=== PATIENT | female | born 1965 | race Caucasian/White ===

== ENCOUNTER 2017-02-06 12:49 | Observation (INO) ==
[2017-02-06] MEDS ORDERED: Naloxone 0.4 MG/ML INJ IVP PRN (15:21)
[2017-02-06] MEDS ORDERED: (Rizatriptan Benzoate [Maxalt] 10 MG) PO PRN (15:26)
[2017-02-06] MEDS: *HR* Morphine 2 MG/ML SYRINGE IVP PRN ×2 (15:52→21:05)
--- NOTE | 2017-02-06 16:24 | Internal Med History&Physical ---
<Philipp Wilson - Last Filed: 02/06/17 16:13> Date of Encounter: 02/06/17 Time of Encounter: 16:13 Assessment and Plan (1) Chest pain Current visit: Yes Status: Acute Giving the patient's clinical presentation she does not appear to be having an NY. However due to her prior history of [place], HTN, DMII, HLD and the setting of chest pain and I will continue to rule out ACS. Patient is resting comfortably in bed at this time and is only requiring intermittent oxygen for respiratory support. She does continue to endorse chest discomfort and tightness with pressure. Stress test in the morning Nothing by mouth after midnight Serial troponins CBC and BMP in the morning Qualifiers: Chest pain type: unspecified Qualified Code(s): R07.9 - Chest pain, unspecified (2) Dyspnea on exertion Current visit: Yes Status: Acute Resting comfortably this time on room air. The patient is intermittently wearing nasal cannula and she feels like she needs it. Does not wear O2 at home. She does have a history of DVT with platelet this time she is at risk for PE due to clinical presentation. Score calculates at 1.5 placing her low risk for PE. Add duo nebs every 4 hours when necessary for dyspnea and wheezing Respiratory support as needed Venous Doppler bilateral lower extremities tomorrow (3) Hypertension Current visit: Yes Status: Acute History of hypertension. The patient is on a beta shantelle at home. She reports that she is anxious and normally her blood pressure tends to increase when she is feeling this way. Continue to monitor throughout hospital course and add an additional oral antihypertensive as needed. Follow up with primary care provider if she remains hypertensive. Qualifiers: Hypertension type: essential hypertension Qualified Code(s): I10 - Essential (primary) hypertension (4) Hyperlipidemia Current visit: Yes Status: Chronic She is unsure when she had her last lipid panel. She is on atorvastatin at home , continue home dose. Follow-up with PCP Qualifiers: Hyperlipidemia type: unspecified Qualified Code(s): E78.5 - Hyperlipidemia , unspecified (5) Diabetes Current visit: Yes Status: Acute Long-standing history of type 2 diabetes. The patient is on both basal and short acting insulin at home as well as oral hypoglycemic agents. While in the hospital and discontinue her oral hypoglycemics and short acting insulin. 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 She is on anticholinergic and VASU therapy. We will hold these while in the hospital and put her on DuoNeb's every 4 when necessary Qualifiers: COPD type: emphysema Emphysema type: unspecified Qualified Code(s): J43.9 - Emphysema, unspecified Internal Medicine - H&P: HPI Chief complaint: CHEST PAIN Admitted From: Home Plans for Post Hospital Care: Home History of present illness: Ms. Kaur is a 51 year old female with a PMH of arthritis, COPD, CVA, DVTs, DMII, GERD, previous GI bleed, HLD, HTN, TIA, anxiety/Bipolar depression and [place] who presents to [facility] with chest pressure beginning approximately 0400 this morning. She reports that the chest pressure is substernal and radiates to the mid back and right arm. Chest pain is worse with activity and accompanied with dyspnea, she admits to nausea and dizziness and headache activity as well. She does a past history of NY, & CVA. Currently she is stating that it feels like something sitting on her chest and pushing through to the bed. However, she is sitting up in bed and does not appear to be in distress. Denies any fever, chills, cough, lower extremity swelling. Admits to palpitations, tachycardia, nausea. She is intermittent removing her nasal cannula while she is eating and denies any respiratory discomfort. Additionally, the patient is concerned about some left lower extremity pain she describes as constant and sharp. Patient states that she believes she is having a "jeff horse" (cramps). She has not had any recent echocardiogram or left heart cath. Past Med Surg Social Fam HX - Past Medical History Medical history: arthritis, COPD, CVA, DVT, diabetes, GERD, GI bleed, hyperlipidemia, hypertension, myocardial infarction, TIA, other Psychiatric history: anxiety, bipolar, depression, PTSD, prior suicide attempt, other - Past Surgical History Surgical History: appendectomy, orthopedic, other, other - Social History Smoking Status: Former smoker Smokeless Tobacco Status: No Alcohol use: rarely Drug use: marijuana - Family History Mother Adopted: No Family Member Ethnicity: Non- Living Status: Still Living Hx Family Cardiac Disorders: Yes (HTN) Hx Family Respiratory Disorders: No Hx Family Cancer: No Hx Family GI Disorders: Yes (choli) Father Race: Family Member Ethnicity: Non- Living Status: Cause of : Leukemia Internal Medicine - H&P: Meds Atenolol [Tenormin] 25 mg PO DAILY 12/31/14 [History] Gabapentin [Neurontin] 900 mg PO TID 12/31/14 [History] Insulin LISPRO [HumaLOG] 0 units SQ TIDAC 12/31/14 [History] Lansoprazole [Prevacid] 30 mg PO QAM 12/31/14 [History] Sucralfate [Carafate] 1 gm PO TID 12/31/14 [History] metFORMIN [Glucophage] 1,000 mg PO BID 12/31/14 [History] Cholecalciferol (Vitamin D3) [Vitamin D3] 5,000 unit PO DAILY 09/03/15 [History] Dicyclomine [Bentyl] 10 mg PO TID PRN 09/03/15 [History] Docusate Sodium [Colace] 100 mg PO DAILY 09/03/15 [History] Fenofibrate [Lofibra] 160 mg PO DAILY 09/03/15 [History] [place]-3S/Dha/Epa/Fish Oil [Fish Oil 1,200 mg Softgel] 1 each PO BID 09/03/15 [ History] Albuterol Sulfate [Ventolin Hfa] 2 puff IH QID PRN 09/19/15 [History] Budesonide/Formoterol 160/4.5 [Symbicort 160/4.5] 2 puff IH BIDR 09/19/15 [ History] Cyclobenzaprine HCl 5 mg PO TID 09/19/15 [History] diazePAM [Valium] 5 mg PO QID PRN 10/14/15 [History] Insulin DETEMIR [Levemir Flextouch] 18 unit SQ HS 10/30/15 [History] Atorvastatin Calcium [Lipitor] 40 mg PO DAILY 01/26/16 [History] Aspirin 81 mg PO DAILY 01/29/16 [History] Ipratropium Neb [Atrovent Neb] 0.5 mg IH TID 01/29/16 [History] Acetaminophen [Tylenol] 500 mg PO Q6HR PRN 01/13/17 [History] Amitriptyline [Elavil] 25 mg PO HS 02/06/17 [History] Ibuprofen [Motrin] 800 mg PO Q6HR PRN 02/06/17 [History] Rizatriptan Benzoate [Maxalt] 10 mg PO TID PRN 02/06/17 [History] 3 Allergy/AdvReac Type Severity Reaction Status Date / Time Sulfa (Sulfonamide Allergy Hives Verified 02/08/16 02:16 Antibiotics) plastic tape Allergy Hives Uncoded 06/22/15 07:17 All Systems PM: A 10-system review of systems was performed and is negative for pertinent findings except as documented above in the HPI. - Constitutional Constitutional: no chills, no fever(s), no night sweats - EENT Eyes: no change in vision, no discharge, no pain, no photophobia Ears: no ear discharge, no ear pain, no tinnitus Nose, mouth and throat: no dysphagia, no nasal discharge, no neck pain, no sore throat - Cardiovascular Cardiovascular ROS IM: as per HPI, chest pain, dyspnea on exertion, lightheadedness, palpitations, no diaphoresis, no dyspnea, no syncope - Respiratory Respiratory: no cough, no dyspnea, no wheezing, no excessive phlegm production - Gastrointestinal Gastrointestinal: no abdominal pain, no diarrhea, no hematemesis, no hematochezia, no melena, no nausea, no vomiting - Genitourinary Genitourinary: no change in urinary stream, no dysuria, no flank pain, no hematuria - Musculoskeletal Musculoskeletal ROS IM: as per HPI, muscle cramps, no joint swelling, no numbness, no tingling - Integumentary Integumentary IM: no rash, no unusual bruising - Neurological Neurological ROS: no confusion, no convulsions, no focal weakness, no numbness, no tingling, no tremor(s) - Psychiatric Psychiatric: anxiety - Hematologic/Lymphatic Hematologic/Lymphatic: no easy bruising - Constitutional Vitals: Temp Pulse Resp BP Pulse Ox 98.7 F 69 18 166/78 95 02/06/17 15:11 02/06/17 15:11 02/06/17 15:11 02/06/17 15:11 02/06/17 15:11 General appearance: Present: mild distress, A&O X 3, morbidly obese, answers questions appropriately - Head Head exam: Present: atraumatic, normocephalic - Eye Eye exam: Present: PERRL, conjuntiva pink, sclera anicteric Pupils: Present: PERRL - Neck Neck exam general surgery: Present: supple, trachea midline. Absent: lymphadenopathy - Respiratory Respiratory exam: Present: decreased breath sounds, CTAB. Absent: accessory muscle use, chest wall tenderness, rales, respiratory distress, rhonchi, wheezes , tachypnea - Cardiovascular Cardiovascular exam: Present: RRR, +S1, +S2. Absent: diastolic murmur, gallop, irregular rhythm, JVD, rubs, systolic murmur, tachycardia - GI/Abdominal GI/Abdominal exam: Present: normal bowel sounds, soft, no peritoneal signs. Absent: distended, tenderness - Extremities Exam Extremities exam: Present: calf tenderness, full ROM, normal capillary refill, normal inspection, radial pulses palpable and symmetrical. Absent: mottling, pedal edema, warm - Neurological Exam Neurological exam: Present: alert, CN II-XII intact, oriented X3, strengths equal and symetr throughout - Psychiatric Psychiatric exam: Present: anxious - Skin Skin exam: Present: dry, intact Internal Med - H&P Results - Labs Labs: Labs reviewed from [facility] ED - EKG Data -: EKG Interpreted by Myself EKG shows normal: sinus rhythm Rate: normal - EKG Data Prior EKG available for review: no Interpretation IM: normal EKG - Diagnostic Studies Chest x-ray Status: image reviewed by me Additional comments: No acute cardiopulmonary process <Tricia Rivers - Last Filed: 02/06/17 18:10> Date of Encounter: 02/06/17 Internal Medicine - H&P: HPI History of present illness: Ms. Kaur is a 51 year old female All Systems PM: A 10-system review of systems was performed and is negative for pertinent findings except as documented above in the HPI. - Constitutional Vitals: Temp Pulse Resp BP Pulse Ox 98.7 F 69 18 166/78 95 02/06/17 15:11 02/06/17 15:11 02/06/17 15:11 02/06/17 15:11 02/06/17 15:11 Internal Med - H&P Results - Labs Labs: Cardiac Enzymes 02/06/17 Range/Units 16:09 Troponin I 0.01 (0-0.03) ng/mL - Attending Attestation I have personally performed a face to face evaluation on this patient. I have reviewed and agree with the care plan. History and Exam by me shows: 51 yo female with strong vascular hx of [place] , angioplasty 2002, 2 x CVA / multiple TIAs who presents with chest pain evaluation. chest pain started when she work up at 4 a.m, pain radiating to the back of the chest, and all over, BP measured 187/115, Reports hx of DVT off AC due to GIB previously At [facility] ED, D-dimer elevated EKG reviewed with rate 84, NSR A/P Chest pain - given significant hx, will trend trop, will plan for stress testing - check amylase/lipase Elevated Dimer in setting of obesity - significant unknown at current - low suspicion for PE given normal HR, no oxygen requirement, no pleuritic component - check b/l LE doppler as patient report concern of LLE cramps on exam - further management pending inpatient course
[2017-02-06 16:37] LABS: Amylase 54 Units/L (25-125); Lipase 77 Units/L (8-78)
[2017-02-06] MEDS ORDERED: Ipratropium/Albuterol Neb 3 ML IH PRN (16:41)
[2017-02-06] MEDS ORDERED: D5% in Water 1,000 ML IVC PRN (16:42)
[2017-02-06] MEDS ORDERED: *HR* Dextrose 50 % in Water (Syg) 50 ML SYRINGE IVP PRN (16:42)
[2017-02-06] MEDS ORDERED: Dextrose Gel 15 GM PO PRN ×2 (16:42)
[2017-02-06] MEDS: Insulin LISPRO 300 UNITS/3 ML VIAL SQ SCH (16:54)
[2017-02-06] MEDS: Budesonide/Formoterol 160/4.5 MDI IH SCH (19:49)
[2017-02-06] MEDS ORDERED: Sucralfate 1 GM TABLET PO SCH (21:00)
[2017-02-06] MEDS: Gabapentin 300 MG CAPSULE PO SCH (21:04)
[2017-02-06] MEDS: diazePAM 5 MG TABLET PO PRN (21:05)
[2017-02-06] MEDS: Insulin DETEMIR 100 UNIT/ML X5UNITS SQ SCH (21:06)
[2017-02-07] MEDS: *HR* Morphine 2 MG/ML SYRINGE IVP PRN ×5 (01:17→21:15)
[2017-02-07 04:12] LABS: Basophils % 0.4 %; Eosinophils # 0.2 K/mcL (0.0-0.6); Eosinophils % 2.7 %; Hematocrit 41.5 % (35.3-44.9); Hemoglobin 12.8 g/dL (11.5-15.4); Immature Granulocytes % 0.4 % (0-4); Lymphocytes # 2.5 K/mcL (0.6-4.6); Lymphocytes % 32.9 %; Mean Corpuscular HGB Conc 30.8 g/dL (31.6-35.5); Mean Corpuscular Hemoglobin 25.6 pg (28.0-33.3); Mean Platelet Volume 10.4 fL (9.4-12.4); Monocytes # 0.6 K/mcL (0.0-1.3); Monocytes % 8.6 %; Neutrophils # 4.1 K/mcL (1.6-8.9); Platelet Count 178 K/mcL (140-400); Red Cell Distribution Width 16.4 % (11.5-14.5)
[2017-02-07 04:30] LABS: BUN/Creatinine Ratio 17 (6-26); Blood Urea Nitrogen 11 mg/dL (7-20); Calcium 9.5 mg/dL (8.6-10.8); Carbon Dioxide 23 mEq/L (19-29); Chloride 106 mEq/L (98-109); Glucose 126 mg/dL (70-99); Osmolality,Calculated 287 (280-300); Potassium 3.6 mEq/L (3.5-4.5); Sodium 138 mEq/L (136-145); eGFR For African Americans > 60 (> 60); eGFR For Non-African Americans > 60 (> 60)
[2017-02-07] MEDS: *HR* Enoxaparin 40 MG/0.4 ML SYRINGE SQ SCH (05:12)
[2017-02-07] MEDS ORDERED: Regadenoson 0.4 MG/5 ML SYRINGE IVP ONE (06:43)
[2017-02-07] MEDS: Insulin LISPRO 300 UNITS/3 ML VIAL SQ SCH ×3 (07:36→17:05)
[2017-02-07] MEDS ORDERED: *HR* Morphine 2 MG/ML SYRINGE IVP PRN (08:01)
[2017-02-07] MEDS ORDERED: Ondansetron 4 MG/2 ML VIAL ONE (08:06)
[2017-02-07] MEDS: Budesonide/Formoterol 160/4.5 MDI IH SCH ×2 (08:11→20:24)
[2017-02-07] MEDS: Ondansetron 4 MG/2 ML VIAL IVP PRN ×2 (08:16→23:37)
[2017-02-07] MEDS: Fenofibrate 54 MG TABLET PO SCH (08:17)
[2017-02-07] MEDS: Aspirin 81 MG TAB.CHEW PO SCH (08:17)
[2017-02-07] MEDS: Gabapentin 300 MG CAPSULE PO SCH ×3 (08:17→21:05)
[2017-02-07] MEDS: Cholecalciferol (D-3) 1,000 UNIT TABLET PO SCH (08:17)
[2017-02-07] MEDS: Sucralfate 1 GM TABLET PO SCH ×3 (08:18→16:49)
[2017-02-07] MEDS: Acetaminophen 325 MG TABLET PO PRN (08:21)
[2017-02-07] MEDS ORDERED: Pantoprazole 40 MG VIAL IVP SCH (09:00)
[2017-02-07] MEDS: diazePAM 5 MG TABLET PO PRN (11:45)
--- NOTE | 2017-02-07 12:32 | Internal Med Progress Note ---
Date of Encounter: 02/07/17 Time of Encounter: 12:29 - Assessment and plan (1) Chest pain Current Visit: Yes Status: Acute Assessment and plan: Second part of stress test scheduled for tomorrow Order STAT a CT angiogram of the chest to evaluate aortic dissection due to the unusual nature of the patient's pain and hypertension Continue blood pressure control The patient was on aspirin, Lipitor and atenolol Use morphine as needed Qualifiers: Chest pain type: other chest pain Qualified Code(s): R07.89 - Other chest pain; R07.8 - Other chest pain (2) COPD (chronic obstructive pulmonary disease) Current Visit: Yes Status: Suspected Assessment and plan: Stable, no exacerbation Qualifiers: COPD type: emphysema Emphysema type: unspecified Qualified Code(s): J43.9 - Emphysema, unspecified (3) Morbid obesity Current Visit: No Status: Acute (4) Hypertension Current Visit: Yes Status: Acute Assessment and plan: Continue atenolol Add lisinopril Add hydralazine IV as needed Qualifiers: Hypertension type: essential hypertension Qualified Code(s): I10 - Essential (primary) hypertension (5) Diabetes Current Visit: Yes Status: Acute Assessment and plan: Continue insulin sliding scale Qualifiers: Diabetes mellitus type: type 2 Diabetes mellitus complication status: without complication Diabetes mellitus detention insulin use: with detention use Qualified Code(s): E11.9 - Type 2 diabetes mellitus without complications ; Z79.4 - terminal make up operator (current) use of insulin; Z79.4 - terminal make up operator (current) use of insulin; Z79.4 - [facility] (current) use of insulin; Z79.4 - terminal make up operator ( current) use of insulin - Subjective Interval history: Complaining of pain over her chest that radiates to her abdomen and hips, pleuritic in nature but sometimes stabbing-like. Feels short of breath, pain is constant 9 out of 10 intensity, feels nauseous, has abdominal pain, no dysuria or diarrhea - Constitutional Vitals: Temp Pulse Resp BP Pulse Ox 98.2 F 87 16 158/95 95 02/07/17 11:21 02/07/17 11:21 02/07/17 11:21 02/07/17 11:21 02/07/17 11:21 General appearance: Present: mild distress, A&O X 3, morbidly obese, answers questions appropriately - Head Head exam: Present: atraumatic, normocephalic - Eye Eye exam: Present: PERRL, conjuntiva pink, sclera anicteric Pupils: Present: PERRL - Neck Neck exam general surgery: Present: supple, trachea midline. Absent: lymphadenopathy - Respiratory Respiratory exam: Present: decreased breath sounds, CTAB. Absent: accessory muscle use, rales, rhonchi, wheezes - Cardiovascular Cardiovascular exam: Present: RRR, +S1, +S2. Absent: diastolic murmur, gallop, rubs, systolic murmur - GI/Abdominal GI/Abdominal exam: Present: normal bowel sounds, soft, no peritoneal signs. Absent: distended, tenderness - Extremities Exam Extremities exam: Present: warm, radial pulses palpable and symmetrical. Absent : calf tenderness, cyanotic, pedal edema - Neurological Exam Neurological exam: Present: CN II-XII intact, oriented X3, no focal deficits. Absent: pronater drift, facial droop, speech deficit - Skin Skin exam: Present: dry, intact Internal Medicine: Result - Labs CBC & Chem 7: 02/07/17 03:10 02/07/17 03:10 Labs: Short CBC 02/07/17 Range/Units 03:10 WBC 7.5 (4.3-11.1) K/mcL Hgb 12.8 (11.5-15.4) g/dL Hct 41.5 (35.3-44.9) % Plt Count 178 (140-400) K/mcL Neutrophils # 4.1 (1.6-8.9) K/mcL BMP 02/07/17 03:10 Sodium 138 Potassium 3.6 Chloride 106 Carbon Dioxide 23 BUN 11 Creatinine 0.66 Glucose 126 H Calcium 9.5 Cardiac Enzymes 02/06/17 02/06/17 Range/Units 16:09 22:32 Troponin I 0.01 0.01 (0-0.03) ng/mL Consult Discharge Plan - Plan Referrals: Suzette Ye CNP [Primary Care Provider] -
[2017-02-07] MEDS: Lisinopril 20 MG TABLET PO SCH (13:12)
[2017-02-07] MEDS ORDERED: SUMAtriptan succinate 25 MG TABLET PO PRN (19:58)
[2017-02-07] MEDS ORDERED: Insulin LISPRO 300 UNITS/3 ML VIAL SQ SCH (21:00)
[2017-02-07] MEDS: Insulin DETEMIR 100 UNIT/ML X5UNITS SQ SCH (21:05)
[2017-02-08] MEDS ORDERED: 0.9 % Sodium Chloride 250 ML IVC ONE (00:24)
[2017-02-08] MEDS: *HR* Morphine 2 MG/ML SYRINGE IVP PRN ×5 (01:02→15:13)
[2017-02-08] MEDS ORDERED: Regadenoson 0.4 MG/5 ML SYRINGE IVP ONE (05:42)
[2017-02-08] MEDS: *HR* Enoxaparin 40 MG/0.4 ML SYRINGE SQ SCH (06:33)
[2017-02-08 06:43] LABS: BUN/Creatinine Ratio 21 (6-26); Blood Urea Nitrogen 13 mg/dL (7-20); Calcium 9.5 mg/dL (8.6-10.8); Carbon Dioxide 22 mEq/L (19-29); Chloride 110 mEq/L (98-109); Glucose 122 mg/dL (70-99); Osmolality,Calculated 291 (280-300); Sodium 140 mEq/L (136-145); eGFR For African Americans > 60 (> 60); eGFR For Non-African Americans > 60 (> 60)
[2017-02-08 06:46] LABS: Potassium 4.5 mEq/L (3.5-4.5)
[2017-02-08] MEDS: Insulin LISPRO 300 UNITS/3 ML VIAL SQ SCH ×3 (07:37→16:54)
[2017-02-08] MEDS: Aspirin 81 MG TAB.CHEW PO SCH (09:06)
[2017-02-08] MEDS: Cholecalciferol (D-3) 1,000 UNIT TABLET PO SCH (09:06)
[2017-02-08] MEDS: Sucralfate 1 GM TABLET PO SCH ×3 (09:06→15:13)
[2017-02-08] MEDS: Lisinopril 20 MG TABLET PO SCH (09:06)
[2017-02-08] MEDS: diazePAM 5 MG TABLET PO PRN (09:06)
[2017-02-08] MEDS: Gabapentin 300 MG CAPSULE PO SCH ×2 (09:07→15:13)
[2017-02-08] MEDS: Fenofibrate 54 MG TABLET PO SCH (10:16)
[2017-02-08] MEDS: Ondansetron 4 MG/2 ML VIAL IVP PRN (10:17)
[2017-02-08] MEDS: Budesonide/Formoterol 160/4.5 MDI IH SCH (10:57)
[2017-02-08] MEDS: Acetaminophen 325 MG TABLET PO PRN (12:47)
--- NOTE | 2017-02-08 16:33 | Electrocardiograph Report ---
[place] [id number] Test Date: 2017-02-06 Pat Name: Yadira Kaur Department: 112 Room: 2A16 Gender: F Tobacco Feeder Catcher: BETTY : 1965 Requested By: Leif Ruano Order Number: [id number] Reading MD: Monie Irizarry Measurements Intervals [place] Rate: 65 P: 43 PA: 170 QRS: 50 QRSD: 86 T: 89 QT: 374 QTc: 385 Interpretive Statements SINUS RHYTHM NONSPECIFIC T-WAVE ABNORMALITY Electronically Signed On 02-08-2017 16:31:51 EDT by Monie Irizarry
--- NOTE | 2017-02-08 16:33 | Nuclear Medicine Stress Report ---
Regadenoson Nuclear 2 day Name: Yadira Kaur Date of Study: 02/07/2017 Date: 1965 Ht: 69.0 in Medical Record#: [id number] Age: 51 Wt: 249.0 lb Gender: Female Order #: [id number] [facility] Supervising Provider: Kalyani Arellano CNP Reading Physician: Simon Padgett DO, FACC, FASE, FASNC Ordering Physician: Dany Carias MD Stress Technologist: Jennifer Ward TABLE ASSEMBLER, CCT Supervisor Public Message Service: Jhonatan Ortiz Indications: Chest Pain Impression: Pharmacologic stress ECG is negative for ischemia at level of heart rate achieved. Gated EF = 59%. Perfusion imaging was negative for ischemia or infarct. History: Hypertension Hypercholesteremia Stress Test Summary: Stress Test Type: Pharmacologic Regadenoson 0.4mg/5ml given IV Baseline Information: Initial Heart Rate: 114 Blood Pressure: 142/82 Stress Information: Test Terminated Due to (primary): As per protocol Maximum Blood Pressure: 180/72 Maximum Heart Rate: 135 Percent Maximum Heart Rate Achieved: 80 Double Product: [id number] METS Reached: 1 Symptoms: No chest symptoms, Nausea, VERY ANXIOUS Nuclear Summary: SPECT myocardial perfusion imaging using Tc99m Sestamibi given intravenously was performed at rest and following cardiac stress testing. The resting images were obtained following initial dose of 32.8 mCi. Following stress an additional dose of 35.8 mCi was given at peak exercise or 30 seconds post regadenoson infusion. Medication Given: Time Medication Dose Units Route Findings: Stress Note * Sinus tachycardia * Occasional PVCs noted prior to exam beginning. * Pharmacologic stress ECG is negative for ischemia at level of heart rate achieved. * Occasional PVCs noted during stress. * Patient had no chest pain during stress. * Normal hemodynamic responses to pharmacologic stress. Study Quality * Study quality is average. Gated EF % * Gated EF = 59%. Left Ventricle * The left ventricle is not dilated. LVEDV = 93 mL. NORMALS * Normal wall motion. * Normal Segmental Perfusion in rest. * Normal segmental perfusion in stress. TID * No evidence of transient ischemic dilatation. Lung Uptake * There is no evidence of increase lung uptake. Updated by Simon Padgett DO, FACC, FASE, FASNC on 02/08/2017 4:26:06 PM electronically signed on 02/08/2017 4:27:50 PM with status of Final
[2017-02-08 16:34] VITALS: BP 112/71
--- NOTE | 2017-02-08 17:07 | Discharge Summary ---
Date of Encounter: 02/08/17 Time of Encounter: 17:03 - Discharge Diagnosis (1) Chest pain Priority: Primary Status: Chronic Qualifiers: Chest pain type: other chest pain Qualified Code(s): R07.89 - Other chest pain; R07.8 - Other chest pain (2) Dyspnea on exertion Priority: Secondary Status: Acute (3) Hyperlipidemia Priority: Secondary Status: Chronic Qualifiers: Hyperlipidemia type: unspecified Qualified Code(s): E78.5 - Hyperlipidemia , unspecified (4) Diabetes Priority: Secondary Status: Acute Qualifiers: Diabetes mellitus type: type 2 Diabetes mellitus complication status: without complication Diabetes mellitus termite treater helper insulin use: with termite treater helper use Qualified Code(s): E11.9 - Type 2 diabetes mellitus without complications ; Z79.4 - director long term care (current) use of insulin; Z79.4 - USP (current) use of insulin; Z79.4 - USP (current) use of insulin; Z79.4 - director long term care ( current) use of insulin (5) COPD (chronic obstructive pulmonary disease) Priority: Secondary Status: Suspected Qualifiers: COPD type: emphysema Emphysema type: unspecified Qualified Code(s): J43.9 - Emphysema, unspecified (6) Hypertension Priority: Secondary Status: Acute Qualifiers: Hypertension type: essential hypertension Qualified Code(s): I10 - Essential (primary) hypertension - Discharge Medications Home Medications: Atenolol [Tenormin] 25 mg PO DAILY 12/31/14 [History] Gabapentin [Neurontin] 900 mg PO TID 12/31/14 [History] Insulin LISPRO [HumaLOG] 0 units SQ TIDAC 12/31/14 [History] Lansoprazole [Prevacid] 30 mg PO QAM 12/31/14 [History] Sucralfate [Carafate] 1 gm PO TID 12/31/14 [History] metFORMIN [Glucophage] 1,000 mg PO BID 12/31/14 [History] Cholecalciferol (Vitamin D3) [Vitamin D3] 5,000 unit PO DAILY 09/03/15 [History] Dicyclomine [Bentyl] 10 mg PO TID PRN 09/03/15 [History] Docusate Sodium [Colace] 100 mg PO DAILY 09/03/15 [History] Fenofibrate [Lofibra] 160 mg PO DAILY 09/03/15 [History] [place]-3S/Dha/Epa/Fish Oil [Fish Oil 1,200 mg Softgel] 1 each PO BID 09/03/15 [ History] Albuterol Sulfate [Ventolin Hfa] 2 puff IH QID PRN 09/19/15 [History] Budesonide/Formoterol 160/4.5 [Symbicort 160/4.5] 2 puff IH BIDR 09/19/15 [ History] Cyclobenzaprine HCl 5 mg PO TID 09/19/15 [History] diazePAM [Valium] 5 mg PO QID PRN 10/14/15 [History] Insulin DETEMIR [Levemir Flextouch] 18 unit SQ HS 10/30/15 [History] Atorvastatin Calcium [Lipitor] 40 mg PO DAILY 01/26/16 [History] Aspirin 81 mg PO DAILY 01/29/16 [History] Ipratropium Neb [Atrovent Neb] 0.5 mg IH TID 01/29/16 [History] Acetaminophen [Tylenol] 500 mg PO Q6HR PRN 01/13/17 [History] Amitriptyline [Elavil] 25 mg PO HS 02/06/17 [History] Ibuprofen [Motrin] 800 mg PO Q6HR PRN 02/06/17 [History] Rizatriptan Benzoate [Maxalt] 10 mg PO TID PRN 02/06/17 [History] Lisinopril [Zestril] 20 mg PO DAILY tablet 02/08/17 [Rx] Allergies/Adverse Reactions: 3 Allergy/AdvReac Type Severity Reaction Status Date / Time Sulfa (Sulfonamide Allergy Hives Verified 02/08/16 02:16 Antibiotics) plastic tape Allergy Hives Uncoded 06/22/15 07:17 Procedures/tests Complete & Pending: Procedures Performed prior 72 hours Category Date Time Status CT angio abdomen pelvis [CT] Stat Cat Scan 02/07/17 12:[address] angio chest [CT] Stat Cat Scan 02/07/17 12:26 Completed NM shaun perf SPECT multi [NM] Routine Exams 02/07/17 09:00 Taken ECG 12 lead ECG [ECG] Routine Y 02/06/17 19:37 Completed SP pharm nuclear stress Routine Y 02/08/17 07:20 Completed Venous Doppler [EV venous imaging LE BI] Routine Y 02/06/17 15:17 Completed Date of admission: 02/06/17 14:08 Primary care physician: Suzette Ye Discharging clinician: Mario Ruano - Patient Status Disposition: Home, Self-Care Condition: Good Functional capacity at discharge: independent ambulation Overall status at discharge: patient is back to baseline - Discharge Instructions Follow Up With: Suzette Ye, WENDI [Primary Care Provider] - 02/14/17 2:30 pm (Please follow up as schedule...) - Diet and Activity Activity: increase activity as tolerated Interval History: Ms. Kaur is a 51 year old female with a PMH of arthritis, COPD, CVA, DVTs, DMII, GERD, previous GI bleed, HLD, HTN, TIA, anxiety/Bipolar depression and MA who presents to [facility] with chest pressure beginning approximately 0400 this morning. She reports that the chest pressure is substernal and radiates to the mid back and right arm. Chest pain is worse with activity and accompanied with dyspnea, she admits to nausea and dizziness and headache activity as well. She does a past history of MA, & CVA. Currently she is stating that it feels like something sitting on her chest and pushing through to the bed. However, she is sitting up in bed and does not appear to be in distress. Denies any fever, chills, cough, lower extremity swelling. Admits to palpitations, tachycardia, nausea. She is intermittent removing her nasal cannula while she is eating and denies any respiratory discomfort. Additionally, the patient is concerned about some left lower extremity pain she describes as constant and sharp. Patient states that she believes she is having a "jeff horse" (cramps). She has not had any recent echocardiogram or left heart cath. Hospital course: Given her high risk for cardiovascular events she was monitored to rule out acute coronary syndrome. Her troponin was negative on presentation. CTA of the abdomen and pelvis showed no aortic dissection or aneurysm and no pulmonary emboli. CTA of the chest was negative for aortic dissection or aneurysm as well. There was no PE seen. Nuclear stress test was done, and it was negative for ischemia or infarct. Patient's pain persisted but is less likely cardiac in nature. She was discharged home in stable condition. All home medications were resumed. - Time Spent with Patient Total time spent providing and/or coordinating discharge services: - Constitutional Vitals: Temp Pulse Resp BP Pulse Ox 98.7 F 75 18 112/71 93 02/08/17 16:30 02/08/17 16:30 02/08/17 16:30 02/08/17 16:30 02/08/17 16:30 General appearance: Present: mild distress, A&O X 3, morbidly obese, answers questions appropriately - Respiratory Respiratory exam: Present: CTAB. Absent: accessory muscle use, rales, rhonchi, wheezes - Cardiovascular Cardiovascular exam: Present: RRR, +S1, +S2. Absent: diastolic murmur, gallop, rubs, systolic murmur - Extremities Exam Extremities exam: Present: warm, radial pulses palpable and symmetrical. Absent : calf tenderness, cyanotic, pedal edema - Skin Skin exam: Present: dry, intact
--- NOTE | 2017-02-08 17:50 | Venous Imaging Report ---
LE Venous Duplex Patient Name:Yadira Kaur Order Number:[id number] Procedure Date:02/07/2017 Date:1965Age:51 yrs Gender:Female Location:[facility] Room #: 2A16 Nuclear Weapons Specialist:Dheeraj Villafana RDCS Referring MD:Philipp Wilson, WIRE LOOP MACHINE OPERATOR Reading MD:Blake Esparza MD Primary Indications:Elevated D-dimer Secondary Indications: Risk Factors Yes/No Anticoagulants Yes Hx of DVT Yes Tani Filter Yes Impressions: Normal bilateral lower extremity deep and superficial venous exam. Recommendations: After imaging the patient returned to their room. Findings Venous Duplex Results: Right: Venous imaging of the lower extremity reveals full patency and normal vessel compressibility of the right distal iliac, right common femoral, right superficial femoral, right popliteal, right posterior tibial, right peroneal, right great saphenous and right lesser saphenous. Doppler signals in the evaluated veins were normal. Left: Venous imaging of the lower extremity reveals full patency and normal vessel compressibility of the left distal iliac, left common femoral, left superficial femoral, left popliteal, left posterior tibial, left peroneal, left great saphenous and left lesser saphenous. Doppler signals in the evaluated veins were normal. Lower Extremity Venous Duplex Side Vein Compress Spontaneous Flow Augment Diameter (cm) Depth (cm) Right Distal Iliac Normal Yes Phasic Yes Right Common Femoral Normal Yes Phasic Yes Right Superficial Femoral Normal Yes Phasic Yes Right Popliteal Normal Yes Phasic Yes Right Posterior Tibial Normal Yes Phasic Yes Right Peroneal Normal Yes Phasic Yes Right Great Saphenous Normal Yes Phasic Yes Right Lesser Saphenous Normal Yes Phasic Yes Left Distal Iliac Normal Yes Phasic Yes Left Common Femoral Normal Yes Phasic Yes Left Superficial Femoral Normal Yes Phasic Yes Left Popliteal Normal Yes Phasic Yes Left Posterior Tibial Normal Yes Phasic Yes Left Peroneal Normal Yes Phasic Yes Left Great Saphenous Normal Yes Phasic Yes Left Lesser Saphenous Normal Yes Phasic Yes Updated by Blake Esparza MD on 02/08/2017 5:41:57 PM electronically signed on 02/08/2017 5:42:13 PM with status of Final
== END 2017-02-08 18:14 | disposition home or self-care (01) ==
LOC: 2ANU → SUATTDRO 14:08 → 2ANU 02-07 11:39
PROVIDERS: ADMIT Nurse Practitioner; ATTEND Student in an Organized Health Care Education/Training Program